=== PATIENT | male | born 1970 | race Caucasian/White ===

== ENCOUNTER 2017-04-07 09:08 | Inpatient (IN) | payer OTHER ==
[2017-04-07] VITALS (12 sets, daily range): BP systolic 107–130; BP diastolic 53–86; PULSE 68–100; RESP 10–18; O2SAT 96–98
[~2017-04-07] VITALS: Ht 180.3 cm; Wt 94.4 kg
--- NOTE | 2017-04-07 09:28 | ED.REPORT ---
HPI- Male Date of Service April 07, 2017 ED Provider: Sean Martin MD 46 y/o male with no pertinent hx presents to the ED complaining of a painful abscess in the inguinal region, onset 4 days ago. The pt was seen at the [place] [facility] 3 days ago and discharged with a prescription for Sulfa and instructions to do warm compresses. The pt reports he has been compliant with the antibiotics but the pain and swelling has gotten worse. The pt reports severe swelling and erythema of his right testicle. The pt also reports difficulty walking, change in appetite, chills, mild dysuria, and constipation. He denies fever, diarrhea and vomiting. Nursing Notes Stated Complaint: BOIL ON TESTICLES/HERNIA Chief Complaint: General Complaint Nursing Notes Reviewed: Yes Allergies: Coded Allergies: No Known Allergies (Unverified , 04/07/17) No Active Prescriptions or Reported Meds General Time Seen by MD: 09:27 Chief Complaint Other (Abscess on right testicle) Hx Obtained From: Patient Arrived By: Walk-in Onset Occurred: 4 days ago Symptom Duration: Since onset Location: : Testicle right Quality: Painful Radiation: : Does not radiate Severity: Current: Moderate Severity: Maximum: Moderate Recent Healthcare: Recent doctor visit Similar Sx Previous: No Past Medical History Past Medical History 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 Physical Exam Initial Vital Signs Vital Signs (First) Date Time Temp Pulse Resp B/P Pulse Ox O2 Delivery O2 Flow Rate FiO2 04/07/17 09:18 36.6 100 10 122/82 98 Room Air Initial VS: Reviewed Head / Eyes: Atraumatic, Normocephalic Neck: Supple, Full range of motion Respiratory: Breath sounds normal, No respiratory distress Cardiovascular: Regular rate & rhythm, Intact distal pulses Abdomen / GI: Soft, Non-tender, No guarding, No rebound Extremities: Vascular intact, Neuro intact, No swelling, No tenderness Neurologic: Alert, Oriented, Nonfocal Male Genitourinary: Penis NL, No penile discharge Testes / Epidid / Scrotum: Positive: Scrotum erythema, Testis enlarged R Perineum: Positive: Erythema present Marked erythema of the right inguinal region, scrotum and perineum. 2x2 cm mass at the base of the scrotum. Mass is tender and not fluctuant with an exception of the area from which it has been draining. Right side of the scrotum swollen and tender. Not fluctuant. General/Constitutional: Awake, Alert, Cooperative, Not toxic appearing Interpretation & Diagnostics Lab Results Interpretation Result Diagram: 04/07/17 0956 04/07/17 0956 Test 04/07/17 09:56 04/07/17 12:35 White Blood Count 10.7th/mm3 (3.8-10.1) Red Blood Count 4.90mil/mm3 (4.40-5.80) Hemoglobin 15.2g/dL (13.8-17.2) Hematocrit 43.3% (41.0-50.0) Mean Corpuscular Volume 88.4fL (81-100) Mean Corpuscular Hemoglobin 31.0pg (27.0-35.0) Mean Corpuscular Hemoglobin Concent 35.1% (32.0-37.0) Red Cell Distribution Width 14.1% (12.3-15.4) Platelet Count 170bil/L (150-400) Neutrophils (%) (Auto) 74.6% (40-74) Lymphocytes (%) (Auto) 17.4% (14-46) Monocytes (%) (Auto) 6.6% (4-12) Eosinophils (%) (Auto) 0.7% (0-5) Basophils (%) (Auto) 0.5% (0-3) Sodium Level 132mEq/L (134-144) Potassium Level 4.3mEq/L (3.5-5.2) Chloride Level 94mEq/L (97-108) Carbon Dioxide Level 22mmol/L (18-29) Blood Urea Nitrogen 12mg/dL (6-24) Creatinine 1.06mg/dL (0.76-1.27) Estimat Glomerular Filtration Rate 79mL/min (>59) Glucose Level 121mg/dL (60-99) Lactic Acid Level 0.8mmol/L (0.4-2.0) Calcium Level 9.0mg/dL (8.5-10.1) Total Bilirubin 0.7mg/dL (0.0-1.2) Aspartate Amino Transf (AST/SGOT) 17U/L (0-50) Alanine Aminotransferase (ALT/SGPT) 13U/L (0-44) Alkaline Phosphatase 104U/L (25-150) Total Protein 7.5g/dL (6.4-8.4) Albumin 3.8g/dL (3.4-5.0) Urine Color Yellow (YELLOW) Urine Appearance Clear (CLEAR,HAZY) Urine pH 6.5 (5.0-8.0) Urine Specific [place] 1.015 (1.003-1.035) Urine Protein Negativemg/dL (NEG,TRACE) Urine Glucose (UA) Negativemg/dL (NEGATIVE) Urine Ketones Negativemg/dL (NEGATIVE) Urine Occult Blood Negative (NEGATIVE) Urine Nitrite Negative (NEGATIVE) Urine Bilirubin Negative (NEGATIVE) Urine Urobilinogen Normalmg/dL (NORMAL) Urine Leukocyte Esterase Negative (NEGATIVE) Urine RBC 0-2/hpf (0-2) Urine WBC 0-5/hpf (0-5) Urine Epithelial Cells Occasional/hpf (NONE-MOD) Urine Crystals None seen (NONE SEEN) Urine Bacteria None/hpf (NONE-FEW) Urine Hyaline Casts None/lpf (NONE) Urine Granular Casts None seen (NONE SEEN) Urine Waxy Casts None seen (NONE SEEN) Urine Red Blood Cell Casts None seen (NONE SEEN) Urine White Blood Cell Casts None seen (NONE SEEN) Urine Mucus None seen (None Seen) Urine Trichomonas None seen (NONE SEEN) Urine Yeast None (NONE SEEN) Urinalysis Comment None Urine Culture Reflexed Not indicated CT Abd / Pelvis Interpretation IMPRESSION: 1. Perineal skin thickening and subcutaneous edema consistent with cellulitis with extension to the right hemiscrotum. No discrete abscess collection or soft tissue gas is identified, but developing Rodo's gangrene cannot be excluded and correlation is recommended with clinical exam. Findings discussed with Dr. Martin on 04/07/17 at 12:30 PM. 2. Slight wall thickening of the urinary bladder which could be due to nondistention or reflect a mild cystitis. Dictated by: Pascual Zacarias M.D. on 04/07/2017 at 12:17 Approved by: Pascual Zacarias M.D. on 04/07/2017 at 12:33 Study type: Abdominal CT IV contrast, Abdom CT oral contrast Interpretation / Wet Read by: Interpret - Radiologist Re-Eval/Medical Decision Re-Evaluation/Progress : Time of Eval: 13:09 Re-Evaluation/Progress Note: Rechecked pt. Discussed lab, imaging results and plan to admit. Pt understands and agrees with the plan for admission. All questions addressed. Consultation #1: Referral / Consult Name: Brianna Ruiz MD Consulted With: Hospitalist Call Returned at: 14:52 Dean Of Boys: Will see patient, Agrees with eval, Agrees with plan, Accepts admit Consultation #2: Referral / Consult Name: Dimitris Luong MD Consulted With: Surgeon Dean Of Boys: Will see patient Note: Dr. Ludwig came to the emergency department saw the patient at the bedside and made arrangements to take the patient to the operating room. Counseled Regarding: Diagnosis, Lab results, Need for admission Discharge & Departure Impression: Primary Impression: Cellulitis of perineum Additional Impression: Abscess Disposition: ADMITTED TO HOSPITAL Discharge Condition All VS Reviewed: Yes Scribe Attestation Portions of this note were transcribed by Shaheen Alcala. I, , personally performed the history, physical exam and medical decision-making;I reviewed and confirmed the accuracy of the information in the transcribed note. Signed by Janie Ramon. 04/07/17 1452 Sean Martin MD April 07, 2017 09:28 Shaheen Alcala April 07, 2017 09:35
[2017-04-07] MEDS ORDERED: 0.9% Sodium Chloride 1,000 ML IV ONE (09:39)
[2017-04-07] MEDS ORDERED: Iohexol 300 mg/mL 30 mL Inj PO ONE (09:40)
[2017-04-07] MEDS ORDERED: Clindamycin Inj 900 MG in IV Premix 1 EACH IV ONE ×2 (09:40→18:00)
[2017-04-07] MEDS ORDERED: Ondansetron 2 mg/mL 2 mL Inj IVPUSH PRN ×5 (09:40→16:40)
[2017-04-07] MEDS ORDERED: Vancomycin Dose per Pharmacist XX ONE (09:40)
[2017-04-07] MEDS ORDERED: Meropenem Inj 1,000 MG in 0.9% Sodium Chloride 100 ML IV ONE (09:40)
[2017-04-07] MEDS ORDERED: Acetaminophen IV 1,000 MG in IV Premix 1 EACH IV ONE (09:40)
[2017-04-07] MEDS ORDERED: HYDROmorphone 0.5 mg/0.5 mL iSecure Syringe IVPUSH PRN (09:40)
[2017-04-07] MEDS ORDERED: Vancomycin Inj 1,500 MG in 0.9% Sodium Chloride 500 ML IV ONE (10:00)
[2017-04-07 10:03] LABS: BASOPHILS % (AUTO) 0.5 % (0-3); EOSINOPHILS % (AUTO) 0.7 % (0-5); MONOCYTES % (AUTO) 6.6 % (4-12); Mean Corpuscular Volume 88.4 fL (81-100); NEUTROPHILS % (AUTO) 74.6 % (40-74); Platelet Count 170 bil/L (150-400)
[2017-04-07] MEDS: HYDROmorphone 1 mg/mL Inj IVPUSH PRN ×2 (10:15→11:20)
--- NOTE | 2017-04-07 12:34 | DRSVH ---
PROCEDURE: CT ABDOMEN AND PELVIS WITH CONTRAST (PNL-7102) INDICATIONS: perineal infection, soft tissue TECHNIQUE: After the administration of oral and intravenous contrast, 5 mm thick sections acquired from the diap hragms to the symphysis. 5 mm thick coronal and sagittal reformats were performed. For radiation do se reduction, the following was used: automated exposure control, adjustment of mA and/or kV accordi ng to patient size. COMPARISON: None. FINDINGS: Image quality: Excellent. ABDOMEN: Lung bases: There is minimal dependent atelectasis in that there are available. Heart size is normal . Solid organs: Liver and spleen are normal in size and enhancement. Gallbladder appears within brad l limits without calcified gallstones. Biliary system is non-dilated. Pancreas enhances normally. No adrenal nodules. Kidneys are normal in size and enhancement, without hydronephrosis. Peritoneum and bowel: Stomach, small bowel, and colon loops are normal in caliber and wall thickness . No evidence of appendicitis. No free fluid or air. Nodes and vessels: No retroperitoneal or mesenteric adenopathy. Aorta and inferior vena cava are no rmal in caliber. Miscellaneous: No ventral hernias. PELVIS: Genitourinary: The urinary bladder is partially distended with suggestion of mild bladder wall thicke erika Miscellaneous: There is skin thickening and subcutaneous edema demonstrated in the perineum extendin g to the right hemiscrotum. There is a focal ovoid region of inflamed fat without a discrete abscess collection. No soft tissue gas. There are mildly prominent inguinal lymph nodes bilaterally, right greater than left, measuring up to 1 cm in short axis with preserved fatty caitlyn. There is a small f at containing right inguinal hernia. Bones: No suspicious bony lesions. No vertebral body compression fractures. IMPRESSION: 1. Perineal skin thickening and subcutaneous edema consistent with cellulitis with extension to the right hemiscrotum. No discrete abscess collection or soft tissue gas is identified, but developing F ournier's gangrene cannot be excluded and correlation is recommended with clinical exam. Findings di scussed with Dr. Martin on 04/07/17 at 12:30 PM. 2. Slight wall thickening of the urinary bladder which could be due to nondistention or reflect a mi ld cystitis. Dictated by: Pascual Zacarias M.D. on 04/07/2017 at 12:17 Approved by: Pascual Zacarias M.D. on 04/07/2017 at 12:33
[2017-04-07 13:20] LABS: APPEARANCE,URINE CLEAR (CLEAR,HAZY); COLOR,URINE YELLOW (YELLOW); OCCULT BLOOD,URINE NEGATIVE (NEGATIVE); PH,URINE 6.5 (5.0-8.0); UROBILINOGEN,URINE NORMAL (NORMAL)
[2017-04-07] MEDS ORDERED: Ondansetron 2 mg/mL 2 mL Inj ONE (14:29)
[2017-04-07] MEDS ORDERED: Propofol 10,000 mCg/mL 20 mL Inj ONE (14:29)
[2017-04-07] MEDS ORDERED: Glycopyrrolate 0.2 MG/ML 1mL Inj ONE (14:29)
[2017-04-07] MEDS ORDERED: Succinylcholine Chloride 20 mg/mL 5 mL Inj ONE (14:29)
[2017-04-07] MEDS ORDERED: Neostigmine 1 mg/mL 10 mL Inj ONE (14:29)
[2017-04-07] MEDS ORDERED: fentaNYL-PF 50 mCg/mL 2 mL Inj ONE (14:29)
[2017-04-07] MEDS ORDERED: MetoCLOpramide 5 mg/mL 2 mL Inj ONE (14:29)
[2017-04-07] MEDS ORDERED: Rocuronium 10 mg/mL 5 mL Inj ONE (14:29)
[2017-04-07] MEDS ORDERED: Lactated Ringer's 1,000 ML IV ONE (15:24)
[2017-04-07] MEDS ORDERED: Atropine 0.4 mg/mL Inj IVPUSH PRN (15:45)
[2017-04-07] MEDS ORDERED: MetoCLOpramide 5 mg/mL 2 mL Inj IVPUSH PRN ×3 (15:45→16:40)
[2017-04-07] MEDS ORDERED: Lactated Ringer's 500 ML IV PRN (15:45)
[2017-04-07] MEDS ORDERED: EPHEDrine Sulfate 50 mg/mL Inj IVPUSH PRN (15:45)
[2017-04-07] MEDS ORDERED: Labetalol 5 mg/mL 4 mL Inj IV PRN (15:45)
[2017-04-07] MEDS ORDERED: fentaNYL-PF 50 mCg/mL 2 mL Inj IVPUSH PRN (15:45)
[2017-04-07] MEDS ORDERED: Lactated Ringer's 1,000 ML IV SCH (15:45)
[2017-04-07] MEDS ORDERED: Phenylephrine 10,000 mCg/mL Inj IVPUSH PRN (15:45)
[2017-04-07] MEDS ORDERED: HYDROmorphone 1 mg/mL Inj IVPUSH PRN (15:45)
--- NOTE | 2017-04-07 15:45 | PCM.HPANE ---
Patient Data Surgeon Admitting Provider:Brianna Ruiz MD Attending Provider:Brianna Ruiz MD Primary Care Physician:Mary Other Provider:Shasha Real Anesthesia Reason for Visit Perineal Cellulitis Abscess Ht/WT & BMI Height (Feet): 5 Height (Inches): 11 Weight (Kilograms): 84.09 Body Mass Index Allergies Coded Allergies: No Known Allergies (Unverified , 04/07/17) Past Anesthesia History Anesthesia History: Denies:: Abnormal Airway, Anesthesia Reactions, Difficult Intubation, Fam Anesthesia Reaction, Fam Malignant Hypertherm, Malignant Hyperthermia Diabetes History Hx Diabetes?: No MRSA MRSA: No Medications No Active Prescriptions or Reported Meds History History of ENT Problems?: No HEENT History: Denies:: Abnormal Airway Cataracts Difficult Intubation Dysphagia Glaucoma Hearing Problem Sinus Problem TMJ Denture Type: None Teeth Condition: Within Normal Limits Hx of Heart Problems?: No Cardiovascular History: Denies:: AICD Abdominal Aortic Aneurism Atrial Fibrillation Cardiac Surgery Chest Pain Congestive Heart Failure Coronary Artery Disease Edema Heart Murmur Hypertension Irregular Heartbeat Pacemaker Peripheral Vascular Rheumatic Fever Thrombophlebitis Valvular Heart Disease Hx of Respiratory Problem?: No Respiratory History: Denies:: Asthma COPD Chest Surgery Cough Dyspnea Emphysema Hemoptysis Oxygen Administration Pneumonia Pulmonary Embolism Tuberculosis Use of C-PAP Machine Use of Inhalers / NEBS Hx Neurologic Problems?: No Neurological History: Denies:: Alzheimer's Disease CVA Dementia Dizziness Headaches Multiple Sclerosis Parkinson's Disease Peripheral Neuropathy Seizures TIA Hx of GI Problems?: Yes Gastrointestinal History: Denies:: Cirrhosis Diverticulitis Gall Bladder Disease Gastroesphageal Reflux Gastrointestinal Bleeding Heartburn Hepatitis Hiatal Hernia Liver Disease Rectal Bleeding Other GI Pertinent History: hx of inguinal hernia, s/p repair Hx of Problems?: No Genitourinary History: Denies:: HX of Hemodialysis Kidney Stones Urinary Tract Infection HX of Peritoneal Dialysis: No Male Hx: Positive for:: Scrotal Mass (current; perineal abscess and cellulitis ) Denies:: Prostate Problems Testicular Surgery Skin History: Denies:: History Skin Disorders? Pressure Ulcers Other Skin Pertinent History: current: erythema and tenderness of the rt.inguinal region, scrotum and perineum; rt.inguinal abscess Hx Musculoskeletal Problems?: No Musculoskeletal History: Denies:: Back Injury Degenerative Joint Fibromyalgia Joint Replacement Musculoskeletal Trauma Myasthenia Gravis Osteoarthritis Rheumatoid Arthritis Systemic Lupus Hx of Psycho/Social Problems?: No Psycho Social History: Denies:: Anxiety Bipolar Disorder Hx Depression Suicide Attempt Hx Surgeries?: Yes (bilateral ankles) Hx Any Other Health Problems?: Yes Other History: Denies:: Cancer Hospitalization Thyroid Disease History Blood Transfusions: Positive for:: Accept Blood Products? Denies:: Blood Transfusions Hx Diabetes: No Hx Alcohol Use: Yes (Quit 2016)Hx Substance Use: No Smoking Status: Current Every Day Smoker Stop/Bang Treated for Sleep Apnea?: No Do You Have a CPAP Machine?: No S-Snoring: Do You Snore Loudly: No T-Tired: feel tired, fatigued: No O-Obsered: Observed not breath: No P-Blood Pressure: treated: No B- Body Mass Index > 35 kg/m2: No A- Age over 50: No N- Neck Large Circumference: No G- Gender Male: Yes HERMELINDO Total Score: 1 Risk Assessment Category Category 1A: Patient has history of documented sleep apnea, and HAS NOT received any narcotic, sedative or anesthesia administration during this stay. Category 1B: Patient has history of documented sleep apnea, and HAS received any narcotic , sedative or anesthesia administration during this stay Category 2: Patient has SUSPECTED Obstructive Sleep Apnea, and HAS received any narcotic , sedative or anesthesia administration during this stay. Category 3: Patient has SUSPECTED Obstructive Sleep Apnea and HAS NOT received narcotic, sedative or anesthesia administration during this stay. Category 4: Outpatient in Procedural Areas with known sleep apnea or who screen positive for High Risk via the STOP/BANG questionnaire. Exam Exam Vital Signs Vital Signs Date Time Temp Pulse Resp B/P Pulse Ox O2 Delivery O2 Flow Rate FiO2 04/07/17 15:03 36.8 98 12 120/78 98 Room Air 04/07/17 13:50 36.8 98 12 120/78 98 Room Air 04/07/17 09:18 36.6 100 10 122/82 98 Room Air General Appearance: Alert, Oriented X3, Cooperative, Moderate Distress (groin abscess pain) HEENT/AIRWAY: MP 2, Neck Movement (FROM), Mouth Opening (3 FBMO) Lungs: Normal Air Movement Heart: Regular Rate/Rhythm Meds/Labs/Diagnostics Admission Meds Current Medications Sodium Chloride 1,000 ml @ 0 mls/hr Q0M ONCE IV Last administered on t 10:16; Start 04/07/17 at 09:39; Stop 04/07/17 at 09:46; Status DC Clindamycin Phosphate/ Dextrose 900 mg/ Premix 50 ml @ 100 mls/hr ONCE ONCE IV Last administered on 04/07/17 10:16; Start 04/07/17 at 09:40; Stop at 10:09; Status DC Meropenem 1000 mg/ Sodium Chloride 100 ml @ 200 mls/hr ONCE ONCE IV Last administered on 04/07/17 11:19; Start 04/07/17 at 09:40; Stop 04/07/17 at 10:09 ; Status DC Acetaminophen/ Premix (Tylenol IV/IV Premix) 100 ml @ 400 mls/hr ONCE ONCE IV Last administered on 04/07/17 10:50; Start 04/07/17 at 09:40; Stop 04/07/17 at 09:54; Status DC Ketorolac Tromethamine (Toradol Inj) 30 mg ONCE ONCE IVPUSH Last administered on 04/07/17 10:16; Start 04/07/17 at 09:40; Stop 04/07/17 at 09:46; Status DC Iohexol 9000 mg 9,000 mg ONCE ONCE PO Last administered on 04/07/17 10:22; Start 04/07/17 at 09:40; Stop 04/07/17 at 09:46; Status DC Vancomycin HCl/ Sodium Chloride (Vancocin Inj/ Normal Saline) 500 ml @ 333.333 mls/hr OT ONCE IV Last administered on 04/07/17 12:35; Start 04/07/17 at 10: 00; Stop 04/07/17 at 11:29; Status DC Labs Test 04/07/17 09:56 04/07/17 12:35 White Blood Count 10.7th/mm3 (3.8-10.1) Red Blood Count 4.90mil/mm3 (4.40-5.80) Hemoglobin 15.2g/dL (13.8-17.2) Hematocrit 43.3% (41.0-50.0) Mean Corpuscular Volume 88.4fL (81-100) Mean Corpuscular Hemoglobin 31.0pg (27.0-35.0) Mean Corpuscular Hemoglobin Concent 35.1% (32.0-37.0) Red Cell Distribution Width 14.1% (12.3-15.4) Platelet Count 170bil/L (150-400) Neutrophils (%) (Auto) 74.6% (40-74) Lymphocytes (%) (Auto) 17.4% (14-46) Monocytes (%) (Auto) 6.6% (4-12) Eosinophils (%) (Auto) 0.7% (0-5) Basophils (%) (Auto) 0.5% (0-3) Sodium Level 132mEq/L (134-144) Potassium Level 4.3mEq/L (3.5-5.2) Chloride Level 94mEq/L (97-108) Carbon Dioxide Level 22mmol/L (18-29) Blood Urea Nitrogen 12mg/dL (6-24) Creatinine 1.06mg/dL (0.76-1.27) Estimat Glomerular Filtration Rate 79mL/min (>59) Glucose Level 121mg/dL (60-99) Lactic Acid Level 0.8mmol/L (0.4-2.0) Calcium Level 9.0mg/dL (8.5-10.1) Total Bilirubin 0.7mg/dL (0.0-1.2) Aspartate Amino Transf (AST/SGOT) 17U/L (0-50) Alanine Aminotransferase (ALT/SGPT) 13U/L (0-44) Alkaline Phosphatase 104U/L (25-150) Total Protein 7.5g/dL (6.4-8.4) Albumin 3.8g/dL (3.4-5.0) Urine Color Yellow (YELLOW) Urine Appearance Clear (CLEAR,HAZY) Urine pH 6.5 (5.0-8.0) Urine Specific [place] 1.015 (1.003-1.035) Urine Protein Negativemg/dL (NEG,TRACE) Urine Glucose (UA) Negativemg/dL (NEGATIVE) Urine Ketones Negativemg/dL (NEGATIVE) Urine Occult Blood Negative (NEGATIVE) Urine Nitrite Negative (NEGATIVE) Urine Bilirubin Negative (NEGATIVE) Urine Urobilinogen Normalmg/dL (NORMAL) Urine Leukocyte Esterase Negative (NEGATIVE) Urine RBC 0-2/hpf (0-2) Urine WBC 0-5/hpf (0-5) Urine Epithelial Cells Occasional/hpf (NONE-MOD) Urine Crystals None seen (NONE SEEN) Urine Bacteria None/hpf (NONE-FEW) Urine Hyaline Casts None/lpf (NONE) Urine Granular Casts None seen (NONE SEEN) Urine Waxy Casts None seen (NONE SEEN) Urine Red Blood Cell Casts None seen (NONE SEEN) Urine White Blood Cell Casts None seen (NONE SEEN) Urine Mucus None seen (None Seen) Urine Trichomonas None seen (NONE SEEN) Urine Yeast None (NONE SEEN) Urinalysis Comment None Urine Culture Reflexed Not indicated Plan Impression Patient chart reviewed, patient interviewed and anesthestic plan with risks, benefits, and alternatives discussed, and informed consent obtained. NPO per Anesth. Guidelines: Yes ASA Physical Status: ASA2 Plus Emergency Anesthetic Plan: GA Bene/Risks/Altern/Consents: Yes HP Complete Prior to Induction: Yes Spencer Wu MD April 07, 2017 15:14
[2017-04-07] MEDS ORDERED: Bupivacaine-MPF 0.5% 30 mL Inj INJ ONE (16:00)
[2017-04-07] MEDS ORDERED: Clindamycin Inj 900 MG in IV Premix 1 EACH IV SCH ×2 (16:30→18:00)
[2017-04-07] MEDS: Vancomycin Dose per Pharmacist XX SCH (16:35)
--- NOTE | 2017-04-07 17:05 | PCM.ANEP1 ---
Post Anesthesia PACU Phase 1 Assessment Vital Signs Vital Signs Date Time Temp Pulse Resp B/P Pulse Ox O2 Delivery O2 Flow Rate FiO2 04/07/17 16:55 36.5 75 15 116/68 96 Room Air 04/07/17 16:50 72 16 114/68 96 Room Air 04/07/17 16:45 72 16 122/53 96 Room Air 04/07/17 16:40 72 16 109/69 96 Room Air 04/07/17 16:35 72 16 107/64 96 Room Air 04/07/17 16:30 70 15 108/70 96 Room Air 04/07/17 16:25 36.2 70 15 123/83 96 Simple Mask 8 04/07/17 15:03 36.8 98 12 120/78 98 Room Air 04/07/17 13:50 36.8 98 12 120/78 98 Room Air 04/07/17 09:18 36.6 100 10 122/82 98 Room Air Anesthetic Administered: GA Level of Alertness: Awake, talking COOK's with Equal Strength: Yes Pain: No Pain Scale Score: 7 Nausea or Vomiting: No CV Function and Hydration: No Airway Device: Oxygen Delivery: Room Air Lungs: Normal Air Movement Dermatome Level: Full Sensation PACU Phase 2 Assessment Complications: No Follow up Care: No Patient Instructions Provided: N/A Spencer Wu MD April 07, 2017 17:05
[2017-04-07] MEDS: 0.9% Sodium Chloride 1,000 ML IV SCH (17:31)
[2017-04-07] MEDS ORDERED: Polyethylene Glycol (PEG) 17 Gm Powder PO PRN (17:35)
--- NOTE | 2017-04-07 17:40 | PCM.HPMED ---
Subjective Date of Service April 07, 2017 Primary Provider: Admitting Physician: Primary Care Physician: Mary Attending Physician: Admit Status: From the Emergency Department Chief Complaint: R testicular pain History of Present Illness: 46 yo male with a significant hx of tobacco abuse presenting to ER with 4 days of inguinal pain that began over the weekend, worsening by monday with e/o abscess that looked like a "pimple" and evaluated at [place] [facility] 3 d ago - with instructions for conservative tx, pain meds and antibiotics with progressive worsening over the last few days with pain to R testicle. pain was noted with walking, denies cp/sob/f/D/V - but +chills, and pain with urination. Review of Systems: complete ROS unremarkable unless stated in HPI Allergies Coded Allergies: No Known Allergies (Unverified , 04/07/17) Home Medications no current meds PMH alcoholism congenital Surgical History R ankle surgery/hardware removal Family History noncontributory Social History Hx Alcohol Use: Yes (Quit 2015) Hx Substance Use: No Smoking Status: Current Every Day Smoker Exam Vital Signs Vital Sign - Last Date Time Temp Pulse Resp B/P Pulse Ox O2 Delivery O2 Flow Rate FiO2 04/07/17 13:50 36.8 98 12 120/78 98 Room Air Exam Gen: nad, a/ox3 HEENT: NCAT, PERRLA, MM Neck: no LAD or JVD Cardio: RR, no r/c/m/g nl s1/s2 Resp: distant BS throughout, no wheezes/rales GI: mild distension, nt, nd, no masses, +BS : R pernieal region with bandage, and wound evaluation shows no active bleeding, packing intact Extrem: no c/c/e, pulses intact Neuro: CN 2-12 GI, no focal deficit Psych: nl mood/affect Lab and Diagnostics Result Diagram: 04/07/17 0956 04/07/17 0956 X-Rays, CTs and MRIs PROCEDURE: CT ABDOMEN AND PELVIS WITH CONTRAST (PNL-7102) INDICATIONS: perineal infection, soft tissue TECHNIQUE: After the administration of oral and intravenous contrast, 5 mm thick sections acquired from the diaphragms to the symphysis. 5 mm thick coronal and sagittal reformats were performed. For radiation dose reduction, the following was used : automated exposure control, adjustment of mA and/or kV according to patient size. COMPARISON: None. FINDINGS: Image quality: Excellent. ABDOMEN: Lung bases: There is minimal dependent atelectasis in that there are available. Heart size is normal. Solid organs: Liver and spleen are normal in size and enhancement. Gallbladder appears within normal limits without calcified gallstones. Biliary system is non-dilated. Pancreas enhances normally. No adrenal nodules. Kidneys are normal in size and enhancement, without hydronephrosis. Peritoneum and bowel: Stomach, small bowel, and colon loops are normal in caliber and wall thickness. No evidence of appendicitis. No free fluid or air. Nodes and vessels: No retroperitoneal or mesenteric adenopathy. Aorta and inferior vena cava are normal in caliber. Miscellaneous: No ventral hernias. PELVIS: Genitourinary: The urinary bladder is partially distended with suggestion of mild bladder wall thickening Miscellaneous: There is skin thickening and subcutaneous edema demonstrated in the perineum extending to the right hemiscrotum. There is a focal ovoid region of inflamed fat without a discrete abscess collection. No soft tissue gas. There are mildly prominent inguinal lymph nodes bilaterally, right greater than left, measuring up to 1 cm in short axis with preserved fatty caitlyn. There is a small fat containing right inguinal hernia. Bones: No suspicious bony lesions. No vertebral body compression fractures. IMPRESSION: 1. Perineal skin thickening and subcutaneous edema consistent with cellulitis with extension to the right hemiscrotum. No discrete abscess collection or soft tissue gas is identified, but developing Rodo's gangrene cannot be excluded and correlation is recommended with clinical exam. Findings discussed with Dr. Martin on 04/07/17 at 12:30 PM. 2. Slight wall thickening of the urinary bladder which could be due to nondistention or reflect a mild cystitis. Dictated by: Pascual Zacarias M.D. on 04/07/2017 at 12:17 Approved by: Pascual Zacarias M.D. on 04/07/2017 at 12:33 Assessment & Plan 46 yo male presenting with R testicular pain found to have R hemiscrotum cellulitis/abscesss now taken to surgery Perineal abscess/R scrotum cellulitis - possible [facility] -to OR for debridement -Appreciate ID recommendations - received vanc/meropenem/clinda in ER/OR -pain control: morphine IV PRN,and norco 1-2 q 4PRN -please monitor oxygen saturations if pt needing narcotic regimen - bowel regimen -zofran/reglan PRN -wound care -I/Os, daily weights Tobacco Abuse -nicotine patch Alcoholism: -stable - last drink 1 yr ago Pain Evaluation: Adequate Pain Control GI Prophylaxis: Not indicated VTE Prophylaxis: Other (start dvt proph with enoxaprin tomorrow) Resuscitation Status: CPR: Attempt Resuscitation Time spent 45 minutes spent with eval and mgmt including admission Brianna Ruiz MD April 07, 2017 15:00 Rajiv Padilla DO April 07, 2017 16:31
[2017-04-07] MEDS ORDERED: PIPERACILLIN TAZO IV ONE (17:55)
[2017-04-07] MEDS ORDERED: Piperacillin-Tazo 3.375 Gm Inj 3.375 GM in Dextrose 5% Minibag Plus 50 ML IV ONE (17:55)
[2017-04-07] MEDS ORDERED: DEXTROSE 5% IV ONE (17:55)
[2017-04-07] MEDS ORDERED: Meropenem Inj 1,000 MG in IV Premix 1 EACH IV SCH (19:00)
--- NOTE | 2017-04-07 19:14 | NUR ---
Post Op Pt arrived from PACU to OSC unit, 1012, via gurney, at 1700. A&Ox3, COOK - ambulated from gurney to bed, VSS, IV patent and infusing, Dressing with packing to right side scrotum, minimal drainage noted - visualized with MD present, States minor to no pain, Pt oriented to room and hospital policy re: not leaving the unit - pt stated understanding. Pt making jokes and cooperative with care. Care continues.
--- NOTE | 2017-04-07 19:43 | PCM.PHAPRO ---
Progress Date of Service: April 07, 2017 R testicular pain Vancomycin Management Per Pharmacy: Indication: Perineal Cellulitis Goal Trough: ~15 mg/dL, taking into consideration location Age: 46 yo Weight: 84 kg Labs: WBC: 10.7 SrCr: 1.06 mg/dL Procalcitonin: 0.13 CRP: 27.7 Est CrCl: ~85 mL/min Vitals: All stable Microbiology: Pending Nephrotoxic Risks: Zosyn IV Recommendation: Load: Vancomycin 1500 mg IV x 1 given Maintenance: Vancomycin 1250 mg IV Q12h Vanco Trough: Draw on 04/09 @ 0730 prior to 4th maintenance dose. Pharmacy to continue to monitor and adjust as needed. Thank You, Celia Love, Pharm D. Celia Love April 07, 2017 19:43
--- NOTE | 2017-04-07 20:22 | CONS ---
[address] [address] CONSULTATION REPORT PATIENT: SHADE CALLOWAY : 1970 MR#: [id number] ADMIT: 04/07/2017 JOB ID: [id number] DATE OF SERVICE: 04/07/2017 CONSULTATION REQUESTED BY: Dr. Sean Martin and the Hospitalist Team. HISTORY OF PRESENT ILLNESS: A 46-year-old man who earlier this week noticed a "pimple" located between the anterior rectum and the base of his scrotum. He tried to drain it; did not really get any drainage. He went to the [facility] Emergency Department and was started on antibiotics. He was told to have it seen if it progressed. He has developed increasing erythema and the swelling in the perineum but extending up to the right hemiscrotum and then also into his right groin. He came to [facility] Emergency Department today and was seen by Dr. Sean Martin. He did not identify an obvious abscess but ordered a CT scan of the abdomen and pelvis. This showed perineal skin thickening and subcutaneous edema consistent with cellulitis. There is no obvious abscess. There is no soft tissue gas. The patient has never had this before. He is an everyday smoker. He quit alcohol a year ago. He has not eaten anything today. PAST MEDICAL HISTORY: Illnesses: Reports a history of alcohol abuse and he voluntarily quit a year ago. He smokes cigarettes daily with a plan to quit now which is a year from quitting alcohol. SOCIAL HISTORY: He works building [employer]. He is a former Special adult education teacher. He lives in [place]. FAMILY HISTORY: Noncontributory. PHYSICAL EXAMINATION: Alert, appearing older than stated age. No acute distress (from smoking). BMI 26. Temperature 36.6, brachial blood pressure 122/82, pulse 100, respiratory rate 10, O2 sat room air 98%. HEENT: PERRLA, EOMI. Neck: No masses. Trachea midline. No thyromegaly. Lungs: Clear. Cardiac exam: Regular rhythm. I did not appreciate any murmurs. Abdomen is soft, nontender. Groin: He has marked erythema without crepitus or obvious fluctuation in his right groin. He states he has had a hernia over the last year. Genitalia: His right testicle is contracted. There is erythema over the right hemiscrotum. No crepitus. Perineum: Erythema with a small opening that is draining a small amount of pus. Extremities: No lower extremity edema. Skin: Erythema as described above but no rashes. Neurologic exam: Appropriate affect. No obvious cranial nerve deficits. No lateralizing signs. Gait normal. IMAGING: CT scan is personally reviewed with Dr. Pablo Alvarez. LABORATORY RESULTS: White blood cell count 10.7 with a left shift, hematocrit is 43, platelet count 170,000. Sodium 132, potassium 4.3, creatinine 1.06. Glucose 121. Lactic acid 0.08. Urinalysis is normal. IMPRESSION: Perineal cellulitis. It is progressive. I advised him that we need to explore this in the operating room. 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 He is aware that he may have an incision extending from his perineum up into his right groin. I have scheduled it with the operating room to go as soon as we can find operative space. The patient agrees to proceed. The patient seen for decision to operate. TIME SPENT: Time spent with patient, Dr. Martin, Dr. Alvarez, and in coordination of care, 1 hour.
[2017-04-07] MEDS: HYDROcodone-APAP 5-325 mg Tablet PO PRN (20:46)
[2017-04-07] MEDS: Senna-Docusate 8.6-50 mg Tablet PO SCH (21:00)
[2017-04-07] MEDS: Vancomycin Inj 1,250 MG in 0.9% Sodium Chloride 250 ML IV SCH (22:49)
[2017-04-08 00:30] VITALS: BP 109/72; PULSE 88; RESP 16; O2SAT 94
[2017-04-08] MEDS: 0.9% Sodium Chloride 1,000 ML IV SCH ×3 (00:51→22:53)
[2017-04-08] MEDS: DEXTROSE 5% IV SCH ×3 (01:28→17:48)
[2017-04-08] MEDS: PIPERACILLIN TAZO IV SCH ×3 (01:28→17:48)
--- NOTE | 2017-04-08 04:45 | NUR ---
Dressing/Pain Pt reported pain at 7/10 x1 time and rec'd prn vicodin with + effects. Pt kerlex changed due to it falling out and was saturated with sero sanguineous fluid. Packing intact, skin edges ok. ABD pad with minor sero sanguineous fluid. Pt compliant with using net underwear to keep in place. Using urinal at bedside. Care continues
[2017-04-08] MEDS: HYDROcodone-APAP 5-325 mg Tablet PO PRN ×4 (05:29→21:10)
[2017-04-08 06:11] VITALS: BP 103/65; PULSE 86; RESP 16; O2SAT 94
--- NOTE | 2017-04-08 06:50 | CONS ---
[address] [address] CONSULTATION REPORT PATIENT: SHADE CALLOWAY : 1970 MR#: [id number] ADMIT: 04/07/2017 JOB ID: [id number] INFECTIOUS DISEASE CONSULT: DATE OF SERVICE: 04/07/[address] Dimitris Luong for this timely consult. REASON FOR CONSULTATION: Forme fruste of Rodo's syndrome. HISTORY OF PRESENT ILLNESS: The patient is a relatively healthy 46-year-old gentleman who was admitted to this facility today and then proceeded more or less directly to the operating room for evaluation of a possible early Rodo's gangrene. He just returned from the OR. Patient's history begins about five days ago when he noted a pimple just posterior to his scrotum. This area gradually enlarged and became more painful, so he sought evaluation by a physician and was prescribed oral sulfa drugs plus Vicodin for pain. Despite taking numerous doses of the sulfa drug over the past 72 hours, this area has progressively enlarged and became more swollen and tender. Over the past 24 hours, in addition to the local pain and swelling behind the scrotum, the patient developed some fever, some fairly impressive chills, generalized malaise, myalgias and arthralgias. He also noted that this erythema was starting to spread up to the site of a prior right inguinal hernia and he became quite concerned and reported to our emergency department. There, there was appropriate concern about possible early Rodo's gangrene and the patient was cultured, started on broad-spectrum antibiotics including vancomycin, clindamycin, and meropenem and a CT scan was done. CT scan shows perineal skin thickening with subcutaneous edema in the perineum extending to the right hemiscrotum along with some swollen lymph nodes and old right inguinal hernia. No gas was seen and there was no clear-cut evidence of Rodo's. Note, that I was present in the radiology suite when the radiologist and Dr. Luong reviewed these films and I had a chance to view them even before I happened to be consulted on this case. PAST MEDICAL HISTORY: 1. Alcohol abuse, having quit one year ago. 2. Ongoing history of tobacco smoking. 3. History of aortic stenosis which led to his being from the [place] after boot camp, but which strangely enough, has not been a problem since. 4. Right ankle ORIF with hardware removed because of pain. SOCIAL HISTORY: The patient quit heavy drinking one year ago. The patient is , has three children. 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 FAMILY HISTORY: Negative for TB in 1st and second-degree relatives. REVIEW OF SYSTEMS: Patient currently without any headache, visual change or sore throat. He has had no trouble swallowing. No significant cough, shortness of breath or chest pain. He notes he has a smoking type respiratory chronic complaints which are mild. He has no significant myalgias or arthralgias, but he has had some shaking chills and some fever as well. No nausea, vomiting or diarrhea. No dysuria though he has had some edema and therefore some trouble urinating on that basis. He has had some constipation which is likely related to pain meds he was given the other day. No cellulitis except that behind his scrotum and extending up into his right inguinal area and certainly no cellulitis streaking up or down the abdominal wall of the legs. Remainder of the review of systems negative. PHYSICAL EXAMINATION: Reveals an afebrile gentleman, in no acute distress. Temp 36.4, pulse 68, respiratory rate 18, blood pressure 130/82, saturating well on room air. He is in no acute distress at all. He is awake, alert and completely lucid. Head without trauma. Eyes without conjunctivitis. Neck is supple without adenopathy. Oral oropharynx is benign, except some prominent papillae on his posterior tongue. Lungs with decreased breath sounds diffusely, but no focal rales, rhonchi or dullness. Cardiac tones regular rate and rhythm without any murmur. Abdomen is soft and nontender. There are no abnormalities of the abdomen. The patient is wearing a fishnet sort of brief which holds the dressing in place in his posterior scrotum, but that is over his incision, it was just made during his recent exploration; otherwise, no notable abnormalities are seen in the genitalia or the groin. There is no erythema, streaking up or down the legs or onto the abdominal wall. Lower extremities are benign with good pulses. No cellulitis, no edema, no synovitis was noted. LABORATORY DATA: Labs include a white count 10,700. Creatinine 1.06 and is normal. Urinalysis completely negative. Micro studies include two sets of blood cultures which are pending. The abdominal CT has already been reviewed. There is still no postop note that we understand by word of mouth from the OR nurses that there were no significant findings of Rodo's. 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 These soft tissue infections in the groin are usually due to a combination of anaerobes and aerobes, but that is more in the flagrantly diabetic patient which this patient is not. I suspect this may in fact be a Staph aureus infection as they are becoming increasingly common infections in the groin area and the history perhaps sounds more like MRSA that was inadequately treated with lower doses of Bactrim then a classic anaerobic/anaerobe Rodo synergistic gangrene, but at this point, it is difficult to tell. In any event, the patient is not very toxic, does not have any significant fever, does not have hypotension and does not even have a leukocytosis. RECOMMENDATIONS: 1. We are going to check a CRP and a procalcitonin. 2. MRSA screen of the nose has been ordered. 3. Will change the antibiotics a bit from vancomycin, clindamycin and meropenem to a combination of vancomycin and high-dose Zosyn. 4. Clindamycin is not needed here as there is no evidence for necrotizing process at this point. 5. I would treat the patient with IV antibiotics for least a couple of days even though he wishes to leave soon. If this is indeed a forme fruste with some Rodo's type process, it will be important to gain control of this infection before it can cause any additional tissue destruction. 6. If the patient is stable to leave over the weekend, he could probably be discharged on high-dose Augmentin depending on what his culture show with Zyvox to be added if MRSA is found. Thank you very much for this timely consult.
--- NOTE | 2017-04-08 07:20 | PCM.PNSURG ---
Subjective Visit Information: Reason for Visit Perineal Cellulitis Abscess Surgery/Surgery Date Post-Op Day # Date of Admission: April 07, 2017 at 15:11 Hospital Day # Subjective: feels fine, has a girlfriend who can do dressing changes for him, wants to know if he can leave today Objective Objective Awake in his own clothes, standing up Abd: soft Perineum -- about 2 inch incision at R scrotum with packing Vital Sign- Last 8 Hours Date Time Temp Pulse Resp B/P Pulse Ox O2 Delivery O2 Flow Rate FiO2 04/08/17 06:11 36.7 86 16 103/65 94 Room Air 04/08/17 00:30 36.8 88 16 109/72 94 Room Air Intake and Output- Last 8 Hour 04/08/17 Cumulative From/Thru 07:00 04/07/17 09:18 - 04/08/17 06:41 Intake Total 1651 ml 3751 ml Output Total 2400 ml 2750 ml Balance -749 ml 1001 ml Intake Oral 800 ml 800 ml IV Total 851 ml 2951 ml Output Urine Total 2400 ml 2750 ml # Bowel Movements 0 Result Diagram: 04/07/17 0956 04/07/17 0956 Assessment & Plan Impression POD #1 s/p I & D of R scrotal/perineal abscess Clinically doing well Problems: Plan Abx per ID and hospitalist Daily dressing changes VTE Prophylaxis: Other (start dvt proph with enoxaprin tomorrow) Resuscitation Status: CPR: Attempt Resuscitation Jordan Tadeo MD April 08, 2017 07:20
[2017-04-08 08:09] VITALS: BP 99/65; PULSE 61; RESP 18; O2SAT 98
--- NOTE | 2017-04-08 08:21 | OP ---
[address] [address] OPERATIVE REPORT PATIENT: SHADE CALLOWAY : 1970 MR#: [id number] ADMIT: 04/07/2017 JOB ID: [id number] DATE OF SURGERY: 04/07/2017 PREOPERATIVE DIAGNOSIS(ES): 1. Perineal abscess. 2. Right inguinal cellulitis. POSTOPERATIVE DIAGNOSIS(ES): 1. Perineal abscess. 2. Right inguinal cellulitis. PROCEDURE: Incision and drainage of perineal abscess, complex. SURGEON: Dimitris Luong MD. AUTOMATIC CIGAR WRAPPER TENDER: Asad Bridges PA-C INDICATIONS: A 46-year-old man who 4-5 days ago developed a "pimple" on his perineum. Three days ago, he went to [facility], was given antibiotics. He was told to return for evaluation if his abscess worsened. He developed redness that went up onto his right hemiscrotum and inguinal region and came to the emergency department today. He had a CT scan that showed no evidence of an abscess, but did show cellulitis. There was also no gas in the soft tissues. On examination, he had an abscess with some pus draining from it and his perineum near the base of the scrotum and after discussing options with the patient, it was elected to proceed to the operating room for exploration and incision and drainage. FINDINGS: The abscess actually was not very large, but there was tracking that extended up towards the right groin. The entire length of this was opened and measured about 8 cm. Pus that I drained was cultured. DESCRIPTION OF PROCEDURE: At the beginning and end of the operation, the SCOAP checklist was completed. A general endotracheal anesthetic was induced. Using Betadine on his peritoneum and ChloraPrep on his abdomen, he was prepped and draped in the usual fashion. The abscess was probed, pus was evacuated and then cultured. The tract extended superiorly and to the right alongside the scrotum. I injected local anesthesia and then the skin and subcutaneous tissue over this was opened. I was able to then find another tract that extended even more anteriorly and opened that up as well. There was only a small amount of necrotic tissue. There was no evidence of a necrotizing infection. After hemostasis was obtained with cautery, the wound was packed with saline moistened Kerlix, covered with dry Kerlix and an ABD and then mesh panties. The estimated blood loss was 10 cc. There were no apparent complications. The only specimen was the culture. The final sponge, needle and instrument counts were announced as correct and the patient was returned to recovery room in stable condition. Critical assistance was provided by Asad Bridges PA-C.
[2017-04-08] MEDS: Vancomycin Inj 1,250 MG in 0.9% Sodium Chloride 250 ML IV SCH ×2 (08:27→22:53)
[2017-04-08] MEDS: Vancomycin Dose per Pharmacist XX SCH (08:30)
--- NOTE | 2017-04-08 15:24 | NUR ---
Social Work Note: Screen Note Data& Assessment: EMR reviewed. SW met with pt at bedside to check in and assess for any unmet needs, SW role explained. Abelriki Woodall is a 46 year old male admitted on 04/07/2017 for perineal cellulitis abscess. Pt has [employer] insurance coverage and does not have a PCP. SW offered to make a PCP appointment for pt or offer information on PCP's in the area, but pt declined. Pt explained "Im not a go to the doctor kind of luis." Pt also declined Advance Directive/ DPOA paperwork as well. Pt lives in [place] with his best friend/Roommate and is independent at baseline. Pt car is in the parking lot and plans to drive himself home if the MD approves it. Pt denies any other needs. No other discharge needs identified at this time. SW to continue to follow if any needs arise. Plan: Anticipated discharge home via POV when medically ready. Pt denies any other needs. No other discharge needs identified at this time. SW to continue to follow if any needs arise. MICHAEL Dominguez
--- NOTE | 2017-04-08 15:27 | PCM.PNMED ---
Subjective Date of Service April 08, 2017 Subjective He is seen today to follow up his right groin cellulitis and nicotine addiction. He is refusing a nicotine patch and asking the nurses to be allowed to smoke outside. Exam Vital Signs Vital Sign - Last Date Time Temp Pulse Resp B/P Pulse Ox O2 Delivery O2 Flow Rate FiO2 04/08/17 08:09 37.5 61 18 99/65 98 Room Air 04/07/17 16:25 8 Intake and Output 04/07/17 04/07/17 04/08/17 Cumulative From/Thru 15:00 23:00 07:00 04/07/17 09:18 - 04/08/17 06:41 Intake Total 1500 ml 600 ml 1651 ml 3751 ml Output Total 350 ml 2400 ml 2750 ml Balance 1500 ml 250 ml -749 ml 1001 ml Intake Oral 800 ml 800 ml IV Total 1500 ml 600 ml 851 ml 2951 ml Output Urine Total 350 ml 2400 ml 2750 ml # Bowel Movements 0 0 Exam Heart: RRR without murmur Lungs: CTAB Ext: No ankle edema Groin - right perineal area and scrotal border with swelling and minimal drainage. No redness. Lab and Diagnostics Result Diagram: 04/07/17 0956 04/07/17 0956 X-Rays, CTs and MRIs PROCEDURE: CT ABDOMEN AND PELVIS WITH CONTRAST ([id number]) INDICATIONS: perineal infection, soft tissue TECHNIQUE: After the administration of oral and intravenous contrast, 5 mm thick sections acquired from the diaphragms to the symphysis. 5 mm thick coronal and sagittal reformats were performed. For radiation dose reduction, the following was used : automated exposure control, adjustment of mA and/or kV according to patient size. COMPARISON: None. FINDINGS: Image quality: Excellent. ABDOMEN: Lung bases: There is minimal dependent atelectasis in that there are available. Heart size is normal. Solid organs: Liver and spleen are normal in size and enhancement. Gallbladder appears within normal limits without calcified gallstones. Biliary system is non-dilated. Pancreas enhances normally. No adrenal nodules. Kidneys are normal in size and enhancement, without hydronephrosis. Peritoneum and bowel: Stomach, small bowel, and colon loops are normal in caliber and wall thickness. No evidence of appendicitis. No free fluid or air. Nodes and vessels: No retroperitoneal or mesenteric adenopathy. Aorta and inferior vena cava are normal in caliber. Miscellaneous: No ventral hernias. PELVIS: Genitourinary: The urinary bladder is partially distended with suggestion of mild bladder wall thickening Miscellaneous: There is skin thickening and subcutaneous edema demonstrated in the perineum extending to the right hemiscrotum. There is a focal ovoid region of inflamed fat without a discrete abscess collection. No soft tissue gas. There are mildly prominent inguinal lymph nodes bilaterally, right greater than left, measuring up to 1 cm in short axis with preserved fatty caitlyn. There is a small fat containing right inguinal hernia. Bones: No suspicious bony lesions. No vertebral body compression fractures. IMPRESSION: 1. Perineal skin thickening and subcutaneous edema consistent with cellulitis with extension to the right hemiscrotum. No discrete abscess collection or soft tissue gas is identified, but developing Rodo's gangrene cannot be excluded and correlation is recommended with clinical exam. Findings discussed with Dr. Martin on 04/07/17 at 12:30 PM. 2. Slight wall thickening of the urinary bladder which could be due to nondistention or reflect a mild cystitis. Dictated by: Pascual Zacarias M.D. on 04/07/2017 at 12:17 Approved by: Pascual Zacarias M.D. on 04/07/2017 at 12:33 Assessment & Plan 46 yo male presenting with R testicular pain found to have R hemiscrotum cellulitis/abscesss taken to surgery for I and D / Exploration Perineal abscess/R scrotum cellulitis - Form Fruste Fourniers -MRSA on nasal swab -Appreciate ID recommendations of Zosyn and Vancomycin pending wound cultures - received vanc/meropenem/clinda in ER/OR -pain control: morphine IV PRN,and norco 1-2 q 4PRN -please monitor oxygen saturations if pt needing narcotic regimen - bowel regimen -zofran/reglan PRN -wound care -I/Os, daily weights Tobacco Abuse -nicotine patch Alcoholism: -stable - last drink 1 yr ago GI Prophylaxis: Not indicated VTE Prophylaxis: Other (start dvt proph with enoxaprin tomorrow) VTE Mechanical Devices: Intermittant Pneumatic CD Resuscitation Status: CPR: Attempt Resuscitation Yfn Rush MD April 08, 2017 15:27
[2017-04-08 15:53] VITALS: BP 109/78; O2SAT 98
--- NOTE | 2017-04-08 19:04 | NUR ---
Pain/Dressing change Pt pain well controlled with Vicodin dressing changed twice this shift, Wet to dry dressing. Pt anxious to smoke, reinforced teaching on smoking policy, offer nicotine patch, pt refused, received order to nicotine lozenges, pt tried one, helped with the need to smoke, pt still restless in room, frequently walking in [place].
[2017-04-08] MEDS: Senna-Docusate 8.6-50 mg Tablet PO SCH (21:00)
[2017-04-08 21:15] VITALS: BP 121/76; PULSE 97; RESP 20; O2SAT 98
[2017-04-09] MEDS: PIPERACILLIN TAZO IV SCH ×2 (01:44→10:51)
[2017-04-09] MEDS: DEXTROSE 5% IV SCH ×2 (01:44→10:51)
--- NOTE | 2017-04-09 04:47 | NUR ---
pain pt took Aztec once at HS this shift. he has slept since then appearing comfortable. This AM he denies the need for any pain medication and says that he would like to sleep for a while longer before getting up and taking medication. dressing has been checked twice and both times was c/d/i. will check again before end of shift and change if necessary. pt up independently in room. pleasant and cooperative with care.
[2017-04-09 06:05] VITALS: BP 125/80; PULSE 88; RESP 20; O2SAT 96
[2017-04-09] MEDS: 0.9% Sodium Chloride 1,000 ML IV SCH (06:51)
[2017-04-09] MEDS ORDERED: Vancomycin Serum Trough XX ONE (07:30)
--- NOTE | 2017-04-09 08:08 | PCM.PNMED ---
Subjective Date of Service April 09, 2017 Subjective Less pain and swelling. No fevers or chills. No nausea or vomiting. Less right groin pain. No chest pain or dyspnea. Exam Vital Signs Vital Sign - Last Date Time Temp Pulse Resp B/P Pulse Ox O2 Delivery O2 Flow Rate FiO2 04/09/17 06:05 36.7 88 20 125/80 96 Room Air 04/07/17 16:25 8 Intake and Output 04/08/17 04/08/17 04/09/17 Cumulative From/Thru 15:00 23:00 07:00 04/07/17 09:18 - 04/09/17 06:17 Intake Total 1000 ml 1776 ml 6527 ml Output Total 3100 ml 5850 ml Balance -2100 ml 1776 ml 677 ml Intake Oral 1000 ml 1800 ml IV Total 1776 ml 4727 ml Output Urine Total 3100 ml 5850 ml # Bowel Movements 0 Exam Right groin still tenders, swollen and indurated. Positive lymphadenopathy. Alert and oriented -3, no distress. Fluent speech Anicteric sclera. Lungs are clear with normal rate and effort Heart is regular without murmur gallop or rub Abdomen soft nontender, flat Extremities are free of edema. Skin is free of rash or lesions. IVs and Medications Medications Reviewed: Medications were reviewed in detail Lab and Diagnostics Result Diagram: 04/07/1795504/07/17955 X-Rays, CTs and MRIs PROCEDURE: CT ABDOMEN AND PELVIS WITH CONTRAST (PNL-7102) INDICATIONS: perineal infection, soft tissue TECHNIQUE: After the administration of oral and intravenous contrast, 5 mm thick sections acquired from the diaphragms to the symphysis. 5 mm thick coronal and sagittal reformats were performed. For radiation dose reduction, the following was used : automated exposure control, adjustment of mA and/or kV according to patient size. COMPARISON: None. FINDINGS: Image quality: Excellent. ABDOMEN: Lung bases: There is minimal dependent atelectasis in that there are available. Heart size is normal. Solid organs: Liver and spleen are normal in size and enhancement. Gallbladder appears within normal limits without calcified gallstones. Biliary system is non-dilated. Pancreas enhances normally. No adrenal nodules. Kidneys are normal in size and enhancement, without hydronephrosis. Peritoneum and bowel: Stomach, small bowel, and colon loops are normal in caliber and wall thickness. No evidence of appendicitis. No free fluid or air. Nodes and vessels: No retroperitoneal or mesenteric adenopathy. Aorta and inferior vena cava are normal in caliber. Miscellaneous: No ventral hernias. PELVIS: Genitourinary: The urinary bladder is partially distended with suggestion of mild bladder wall thickening Miscellaneous: There is skin thickening and subcutaneous edema demonstrated in the perineum extending to the right hemiscrotum. There is a focal ovoid region of inflamed fat without a discrete abscess collection. No soft tissue gas. There are mildly prominent inguinal lymph nodes bilaterally, right greater than left, measuring up to 1 cm in short axis with preserved fatty caitlyn. There is a small fat containing right inguinal hernia. Bones: No suspicious bony lesions. No vertebral body compression fractures. IMPRESSION: 1. Perineal skin thickening and subcutaneous edema consistent with cellulitis with extension to the right hemiscrotum. No discrete abscess collection or soft tissue gas is identified, but developing Rodo's gangrene cannot be excluded and correlation is recommended with clinical exam. Findings discussed with Dr. Martin on 04/07/17 at 12:30 PM. 2. Slight wall thickening of the urinary bladder which could be due to nondistention or reflect a mild cystitis. Dictated by: Pascual Zacarias M.D. on 04/07/2017 at 12:17 Approved by: Pascual Zacarias M.D. on 04/07/2017 at 12:33 Assessment & Plan 46 yo male presenting with R testicular pain found to have R hemiscrotum cellulitis/abscesss taken to surgery for I and D / Exploration #. Perineal abscess/R scrotum cellulitis - Improving. -MRSA on nasal swab -Continue Zosyn and Vancomycin pending wound cultures - received vanc/meropenem/ clinda in ER/OR -pain control: morphine IV PRN,and norco 1-2 q 4PRN (high risk medication). - bowel regimen -zofran/reglan PRN -wound care -I/Os, daily weights Possible discharge Monday if continues to improve. #. Tobacco dependence, POA. Stable. -nicotine patch #. Alcohol dependence, POA. Remission. -stable - last drink 1 yr ago GI Prophylaxis: Not indicated VTE Prophylaxis: Other (start dvt proph with enoxaprin tomorrow) VTE Mechanical Devices: Intermittant Pneumatic CD Resuscitation Status: CPR: Attempt Resuscitation Yovany Luong MD April 09, 2017 08:08
[2017-04-09] MEDS: Vancomycin Dose per Pharmacist XX SCH (08:30)
--- NOTE | 2017-04-09 08:33 | PCM.PNSURG ---
Subjective Visit Information: Reason for Visit Perineal Cellulitis Abscess Surgery/Surgery Date Post-Op Day # Date of Admission: April 07, 2017 at 15:11 Hospital Day # Subjective: R scrotal dressing changed yesterday, otherwise doing well, on abx Objective Objective Awake in bed Wearing his own clothes R scrotum/perineum -- packing in place, no visible erythema Wound Cx -- staph Vital Sign- Last 8 Hours Date Time Temp Pulse Resp B/P Pulse Ox O2 Delivery O2 Flow Rate FiO2 04/09/17 06:05 36.7 88 20 125/80 96 Room Air Intake and Output- Last 8 Hour 04/09/17 Cumulative From/Thru 07:00 04/07/17 09:18 - 04/09/17 06:17 Intake Total 1776 ml 6527 ml Output Total 5850 ml Balance 1776 ml 677 ml Intake Oral 1800 ml IV Total 1776 ml 4727 ml Output Urine Total 5850 ml # Bowel Movements 0 Result Diagram: 04/07/17 0956 04/07/17 0956 Assessment & Plan Impression R scrotal abscess s/p I & D Wound cx so far showing staph Problems: Plan screen maker to see tomorrow IV abx per ID and hospitalist service Will need outpt follow-up. VTE Prophylaxis: Other (start dvt proph with enoxaprin tomorrow) Resuscitation Status: CPR: Attempt Resuscitation Jordan Tadeo MD April 09, 2017 08:33
[2017-04-09] MEDS: HYDROcodone-APAP 5-325 mg Tablet PO PRN (08:49)
[2017-04-09] MEDS: Vancomycin Inj 1,250 MG in 0.9% Sodium Chloride 250 ML IV SCH (08:50)
--- NOTE | 2017-04-09 08:56 | PCM.PHAPRO ---
Progress R testicular pain Vancomycin trough of 11.8 returned below target after late administration of previous dose. Increasing dose to [id number]. Next trough on 04/11@4624 Kirill Spence Pharm.D April 09, 2017 08:56
--- NOTE | 2017-04-09 12:22 | PCM.DIMED ---
Discharge Instructions Date of Service April 09, 2017 Dates of Hospitalization April 07, 2017 at 15:11 Discharge Diagnosis Discharge Diagnosis #. Perineal abscess/R scrotum cellulitis - Improving. #. Tobacco dependence #. Alcohol dependence, Remission. Diet No restrictions Activity No restrictions Call your provider Fever or Chills, Other (INCREASED GROIN SWELLING) Patient Instructions CALL WOUND CARE CLINIC MONDAY Follow-up Provider: Sepideh Roland Follow-up with PCP in: 1 week Yovany Luong MD April 09, 2017 12:22
[2017-04-09] MEDS ORDERED: LINE600T2 PO (12:23)
[2017-04-09] MEDS ORDERED: AMOX-366 PO (12:23)
--- NOTE | 2017-04-09 12:27 | PCM.DC.MED ---
Discharge Summary Date of Service April 09, 2017 Dates of Hospitalization Date of Hospital Admission April 07, 2017 at 15:11 Date of Discharge: April 09, 2017 Providers: Admitting Physician: Rajiv Padilla DO Primary Care Physician: Nopcp Attending Physician: Rajiv Padilla DO Diagnosis at Time of Discharge Diagnosis at Time of Discharge #. Perineal abscess/R scrotum cellulitis - Improving. #. Tobacco dependence #. Alcohol dependence, Remission. Consultations ID, Brien Whitman Procedures XRay, CTs & MRIs PROCEDURE: CT ABDOMEN AND PELVIS WITH CONTRAST (PNL-7102) INDICATIONS: perineal infection, soft tissue TECHNIQUE: After the administration of oral and intravenous contrast, 5 mm thick sections acquired from the diaphragms to the symphysis. 5 mm thick coronal and sagittal reformats were performed. For radiation dose reduction, the following was used : automated exposure control, adjustment of mA and/or kV according to patient size. COMPARISON: None. FINDINGS: Image quality: Excellent. ABDOMEN: Lung bases: There is minimal dependent atelectasis in that there are available. Heart size is normal. Solid organs: Liver and spleen are normal in size and enhancement. Gallbladder appears within normal limits without calcified gallstones. Biliary system is non-dilated. Pancreas enhances normally. No adrenal nodules. Kidneys are normal in size and enhancement, without hydronephrosis. Peritoneum and bowel: Stomach, small bowel, and colon loops are normal in caliber and wall thickness. No evidence of appendicitis. No free fluid or air. Nodes and vessels: No retroperitoneal or mesenteric adenopathy. Aorta and inferior vena cava are normal in caliber. Miscellaneous: No ventral hernias. PELVIS: Genitourinary: The urinary bladder is partially distended with suggestion of mild bladder wall thickening Miscellaneous: There is skin thickening and subcutaneous edema demonstrated in the perineum extending to the right hemiscrotum. There is a focal ovoid region of inflamed fat without a discrete abscess collection. No soft tissue gas. There are mildly prominent inguinal lymph nodes bilaterally, right greater than left, measuring up to 1 cm in short axis with preserved fatty caitlyn. There is a small fat containing right inguinal hernia. Bones: No suspicious bony lesions. No vertebral body compression fractures. IMPRESSION: 1. Perineal skin thickening and subcutaneous edema consistent with cellulitis with extension to the right hemiscrotum. No discrete abscess collection or soft tissue gas is identified, but developing Rodo's gangrene cannot be excluded and correlation is recommended with clinical exam. Findings discussed with Dr. Martin on 04/07/17 at 12:30 PM. 2. Slight wall thickening of the urinary bladder which could be due to nondistention or reflect a mild cystitis. Dictated by: Pascual Zacarias M.D. on 04/07/2017 at 12:17 Approved by: Pascual Zacarias M.D. on 04/07/2017 at 12:33 Invasive Procedures I and D Right groin abscess Brief History 46 yo male with a significant hx of tobacco abuse presenting to ER with 4 days of inguinal pain that began over the weekend, worsening by monday with e/o abscess that looked like a "pimple" and evaluated at [facility] 3 d ago - with instructions for conservative tx, pain meds and antibiotics with progressive worsening over the last few days with pain to R testicle. pain was noted with walking, denies cp/sob/f/D/V - but +chills, and pain with urination. Hospital Course 46 yo male presenting with R testicular pain found to have R hemiscrotum cellulitis/abscesss taken to surgery for I and D / Exploration #. Perineal abscess/R scrotum cellulitis - Improving. -MRSA on nasal swab -Continue Zosyn and Vancomycin pending wound cultures - received vanc/meropenem/ clinda in ER/OR -pain control: morphine IV PRN,and norco 1-2 q 4PRN (high risk medication). - bowel regimen -zofran/reglan PRN -wound care -I/Os, daily weights Possible discharge Monday if continues to improve. Improved with I and D and IV antibiotics. Okay for dc after seen on Monday by Edward, #. Tobacco dependence, POA. Stable. -nicotine patch #. Alcohol dependence, POA. Remission. -stable - last drink 1 yr ago Exam Vital Signs (Last) Date Time Temp Pulse Resp B/P Pulse Ox O2 Delivery O2 Flow Rate FiO2 04/09/17 06:05 36.7 88 20 125/80 96 Room Air 04/07/17 16:25 8 Exam Patient seen and examined on the day of discharge. Test 04/07/17 09:56 04/07/17 12:35 04/09/17 07:35 White Blood Count 10.7th/mm3 (3.8-10.1) Red Blood Count 4.90mil/mm3 (4.40-5.80) Hemoglobin 15.2g/dL (13.8-17.2) Hematocrit 43.3% (41.0-50.0) Mean Corpuscular Volume 88.4fL (81-100) Mean Corpuscular Hemoglobin 31.0pg (27.0-35.0) Mean Corpuscular Hemoglobin Concent 35.1% (32.0-37.0) Red Cell Distribution Width 14.1% (12.3-15.4) Platelet Count 170bil/L (150-400) Neutrophils (%) (Auto) 74.6% (40-74) Lymphocytes (%) (Auto) 17.4% (14-46) Monocytes (%) (Auto) 6.6% (4-12) Eosinophils (%) (Auto) 0.7% (0-5) Basophils (%) (Auto) 0.5% (0-3) Sodium Level 132mEq/L (134-144) Potassium Level 4.3mEq/L (3.5-5.2) Chloride Level 94mEq/L (97-108) Carbon Dioxide Level 22mmol/L (18-29) Blood Urea Nitrogen 12mg/dL (6-24) Creatinine 1.06mg/dL (0.76-1.27) Estimat Glomerular Filtration Rate 79mL/min (>59) Glucose Level 121mg/dL (60-99) Hemoglobin A1c 5.8% (4.8-5.6) Lactic Acid Level 0.8mmol/L (0.4-2.0) Calcium Level 9.0mg/dL (8.5-10.1) Total Bilirubin 0.7mg/dL (0.0-1.2) Aspartate Amino Transf (AST/SGOT) 17U/L (0-50) Alanine Aminotransferase (ALT/SGPT) 13U/L (0-44) Alkaline Phosphatase 104U/L (25-150) C-Reactive Protein 27.7mg/dL (0.0-0.5) Total Protein 7.5g/dL (6.4-8.4) Albumin 3.8g/dL (3.4-5.0) Procalcitonin 0.13ng/mL (0.00-0.08) Urine Color Yellow (YELLOW) Urine Appearance Clear (CLEAR,HAZY) Urine pH 6.5 (5.0-8.0) Urine Specific [place] 1.015 (1.003-1.035) Urine Protein Negativemg/dL (NEG,TRACE) Urine Glucose (UA) Negativemg/dL (NEGATIVE) Urine Ketones Negativemg/dL (NEGATIVE) Urine Occult Blood Negative (NEGATIVE) Urine Nitrite Negative (NEGATIVE) Urine Bilirubin Negative (NEGATIVE) Urine Urobilinogen Normalmg/dL (NORMAL) Urine Leukocyte Esterase Negative (NEGATIVE) Urine RBC 0-2/hpf (0-2) Urine WBC 0-5/hpf (0-5) Urine Epithelial Cells Occasional/hpf (NONE-MOD) Urine Crystals None seen (NONE SEEN) Urine Bacteria None/hpf (NONE-FEW) Urine Hyaline Casts None/lpf (NONE) Urine Granular Casts None seen (NONE SEEN) Urine Waxy Casts None seen (NONE SEEN) Urine Red Blood Cell Casts None seen (NONE SEEN) Urine White Blood Cell Casts None seen (NONE SEEN) Urine Mucus None seen (None Seen) Urine Trichomonas None seen (NONE SEEN) Urine Yeast None (NONE SEEN) Urinalysis Comment None Urine Culture Reflexed Not indicated Pro-B-Type Natriuretic Peptide 370.9pg/mL (0-121) Vancomycin Level Trough 11.8mcg/mL Discharge Medications Discharge Medications Amoxicillin/Clav K 875-125 mg (Augmentin 875-125 mg) 1 Each Tablet 1 TABLET PO BID Prescribed by: YOVANY CROW MD Linezolid (Zyvox) 600 Mg Tablet 600 MG PO BID Prescribed by: YOVANY CROW MD Followup Plan Disposition: Home Discharge Diet: No restrictions Discharge Activity: No restrictions Patient Instructions CALL WOUND CARE CLINIC MONDAY Follow-up Provider: Sepideh Roland Follow-up with PCP in: 1 week Time spent 40 min Yovany Crow MD April 09, 2017 12:27
--- NOTE | 2017-04-09 12:28 | NUR ---
Social Work Note: Discharge Data& Assessment: Per pt is medically improved and ready to discharge home via POV. Abel Woodall is a 46 year old male admitted on 04/07/2017 for perineal cellulitis abscess. Per pt is medically improved and ready to discharge home with outpt wound care center follow up. Per RNKENIA to schedule appointment tomorrow, Monday when the center is open, pt has contact info to arrange outpt follow up himself as well. Pt is ambulating the halls independently. SW met with pt at bedside to assess for any unmet needs and confirm the discharge plan. Pt denies any other needs and plans to drive himself home today. MD aware. No other discharge needs identified. Plan: Per pt is medically improved and ready to discharge home via POV with outpt wound care center follow up. Pt denies any other needs. MD aware. No other discharge needs identified. MICHAEL Dominguez
[2017-04-09] MEDS ORDERED: HYDR-4003 PO (13:02)
--- NOTE | 2017-04-09 13:57 | PROG NOTE ---
[address] [address] PROGRESS NOTE PATIENT: SHADE CALLOWAY : 1970 MR#: [id number] ADMIT: 04/07/2017 JOB ID: [id number] DATE: 04/09/2017 REASON FOR FOLLOWUP: Staph aureus right scrotal infection. INTERVAL HISTORY: Recall that this is a 46-year-old gentleman who was admitted because of concerns about possible early Rodo-type gangrene. He was taken to the operating room and an incision was made along the right side of his scrotum on April 07. At that time, the diagnosis was perianal abscess and right inguinal cellulitis. It was noted that an 8 cm incision was made and a small abscess was found in the right scrotal area. The patient reports that over his 2-1/2 days here in the hospital, he is dramatically better and at this point, he is extremely anxious about being discharged as soon as possible, preferably today. 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 No fevers, no chills. No sweats. No cough, chest pain, nausea, vomiting, diarrhea. PHYSICAL EXAMINATION: Reveals an afebrile gentleman who has been afebrile since admission. He is in no distress. Pulse 88, respiratory rate 20, blood pressure 125/80. He is saturating well on room air. He is awake, alert, anxious. Oral cavity negative. Lungs clear. Cardiac tones without murmur. Abdomen benign. The right scrotum has about a 7 cm long incision which extends basically from the base of the scrotum all the way up along the right lateral side. This wound is packed, but I removed the packing and it looks quite clean at the base. LABORATORIES: Include white count 10,000 when he came in. It has not been repeated in the last couple days. CRP was very high 28, but procalcitonin 0.13. Urinalysis without white cells. Micro studies include two negative blood cultures. A nasal MRSA screen is positive and a culture that Dr. Luong obtained during the I and D procedure is growing heavy growth of one organism which is Staph aureus. We will not known until tomorrow if this is MRSA like the Staph in the nose. IMPRESSION: It would appear this patient has a monomicrobial right scrotal cellulitis with a small abscess that was drained surgically two days ago. This is likely all due to Methicillin-resistant Staphylococcus aureus and we are seeing more and more of these perineal/genital methicillin-resistant Staphylococcus aureus infections over the past decade or so since the emergence of methicillin-resistant Staphylococcus aureus as a community pathogen. I think, at this point, the patient could be managed with oral Zyvox on about a 10-day course starting today. Zyvox is very well orally absorbed and should be a potent agent against virtually all isolates of Staph aureus. Ideally, the patient would wait until tomorrow until we have back susceptibilities on the groin organism, but I do not think it would be a big jump for him to go home today with close followup in the [facility] Care [facility]. RECOMMENDATIONS: 1. Will discontinue the vancomycin and switch to oral Zyvox 600 b.i.d. with the plan to go for 10 days. 2. If the patient leaves today before his final cultures are done of the groin site, I would also send him with Augmentin 875 p.o. b.i.d. for 10 days which would provide coverage for anaerobes and any other organisms which we have not yet identified in the not yet finalized cultures. 3. The patient will need followup with wound management. 4. Thank you very much.
--- NOTE | 2017-04-09 14:53 | NUR ---
Discharge Pt left via private vehicle in stable condition with all belongings at 1430, no narcotics given since 0830 this am, IV d/c'd, prescriptions given, teaching on wound care done with pt, pt verbalized how to do dressing change. instructions for follow up appointments given. pt will call Monday morning to set them up.
[2017-04-09] MEDS ORDERED: Vancomycin Inj 1,500 MG in 0.9% Sodium Chloride 500 ML IV SCH (20:30)
[2017-04-11] MEDS ORDERED: Vancomycin Serum Trough XX ONE (07:30)
== END 2017-04-09 14:28 | disposition home or self-care (01) | DRG 383 ==
LOC: SED 09:08 → OSC 14:45 → ORA 14:55 → OSC 15:11
PROVIDERS: ADMIT Internal Medicine; ATTEND Internal Medicine
PROC: 0H99XZX Drainage of Perineum Skin, External Approach, Diagnostic (ICD-10-PCS; principal; 2017-04-07 17:00)
DX: L02.215 Cutaneous abscess of perineum (principal); B95.62 Methicillin resistant Staphylococcus aureus infection as the cause of diseases classified elsewhere; F10.21 Alcohol dependence, in remission; N49.2 Inflammatory disorders of scrotum; F17.210 Nicotine dependence, cigarettes, uncomplicated

== ENCOUNTER 2017-05-17 06:40 | Emergency (ER) | payer OTHER ==
[~2017-05-17] VITALS: Ht 180.3 cm; Wt 84.1 kg
[~2017-05-17 06:40] MED LIST: AMOX-366 PO; HYDR-4003 PO; LINE600T2 PO
[2017-05-17 06:43] VITALS: BP 115/76; PULSE 96; RESP 16; O2SAT 96
--- NOTE | 2017-05-17 07:03 | ED.REPORT ---
HPI-Rash / Abscess Date of Service May 17, 2017 ED Provider: Allen Maldonado MD The patient is a 47 year old male with history of MRSA, who presents to the emergency department complaining of multiple sore areas located diffusely to his body. The patient believes he got multiple bug bites while sleeping in a trailer bed 2 weeks ago. The bumps initially were getting better and were only located to his legs bilaterally. Over the last few days the bumps have spread to his neck, chest, and armpit. Some of the sores have increased in size and appear to be infected. He denies fever, chills, nausea or vomiting. He admits that he has been scratching at the bumps and thinks they become infected. Nursing Notes Stated Complaint: BUG BITES Chief Complaint: Skin Rash/Abscess Nursing Notes Reviewed: Yes Allergies: Coded Allergies: No Known Allergies (Unverified , 04/07/17) Scheduled Amoxicillin/Clav K 875-125 mg (Augmentin 875-125 mg) 1 Each Tablet 1 TABLET PO BID Doxycycline Monohyd (Doxycycline Monohyd) 100 Mg Tablet 100 MG PO BID Linezolid (Zyvox) 600 Mg Tablet 600 MG PO BID Mupirocin (Mupirocin Ointment) 22 Gm Oint...g. 1 APPLIC TOP TID Scheduled PRN Hydrocodone-Acetaminophen 5-325 mg (Hydrocodone-Acetaminophen 5-325 mg) 1 Each Tablet 1 TABLET PO Q4H PRN PRN For Pain General Time Seen by MD: 07:02 Chief Complaint Mult tender/swollen areas Hx Obtained From: Patient Arrived By: Walk-in Onset Occurred: More than a week ago... 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 Physical Exam Initial Vital Signs Vital Signs (First) Date Time Temp Pulse Resp B/P Pulse Ox O2 Delivery O2 Flow Rate FiO2 05/17/17 06:43 36.8 96 16 115/76 96 Room Air Initial VS: Reviewed Head / Eyes: Atraumatic, Normocephalic, PERRL ENT: Mucous membranes moist, Conjunctiva normal, No scleral icterus Neck: Supple, Non-tender, Full range of motion Respiratory: Breath sounds normal, Clear to auscultation, No respiratory distress Cardiovascular: Regular rate & rhythm, Heart sounds normal, Intact distal pulses Abdomen / GI: Soft, Non-tender, No guarding, No rebound, No distention Extremities: Vascular intact, Neuro intact, No swelling, No tenderness Neurologic: Alert, Oriented, Nonfocal Psychiatric: Mood/affect normal, Behavior normal, Normal thought content General/Constitutional: Awake, Alert, Cooperative Skin: Warm, Dry Rash / Lesion Notes: There are scattered erythematous papules about his groin folds, lower extremities, 1 to the left side of his neck, and 1 to his left cheek. They are erythematous, tender, and slightly pustular in appearance. The papules are measuring anywhere from 3 mm to 2 cm. There are no abscesses amenable to incision and drainage. No cellulitis. Re-Eval/Medical Decision Med Decision/Clinical Course The patient is a 47 year old male with history of MRSA, who presents to the emergency department complaining of multiple sore areas located diffusely to his body. The patient believes he got multiple bug bites while sleeping in a trailer bed 2 weeks ago. The bumps initially were getting better and were only located to his legs bilaterally. Over the last few days the bumps have spread to his neck, chest, and armpit. Some of the sores have increased in size and appear to be infected. He denies fever, chills, nausea or vomiting. He admits that he has been scratching at the bumps and thinks they became infected. Here in the emergency department the patient is afebrile with stable vital signs and examination as above. Examination reveals diffuse erythematous pupils about his lower extremities, inner thigh region, neck and face. These are consistent with pustules. None of these have significant surrounding cellulitic component. There are no regions of abscess amenable to incision and drainage. I suspect the patient may initially have had some superficial bug bites which he aggressively scratched causing skin injuries and production of MRSA resulting in his now present pustular rash. I have prescribed doxycycline as well as mupirocin ointment. I have advised the patient to apply warm compresses. He will additionally tried bleach about this for MRSA eradication. Given his history of significant groin infection requiring surgical I&D I have advised him to return to the emergency room immediately should he develop worsening pustular rash, worsening swelling, fevers or any other concerning signs or symptoms. Prior to discharge follow-up and return precautions were reviewed in detail with the patient who verbalized understanding and agreement with the plan. The patient was discharged in stable condition. Source of Hx: Old records Re-Evaluation/Progress : Time of Eval: 07:52 Re-Evaluation/Progress Note: Discussed plan for discharge. All questions were addressed. Counseled Regarding: Diagnosis, Need for follow-up, When/why to return to ED Discharge & Departure Impression: Primary Impression: Pustules determined by examination Additional Impression: History of MRSA infection Disposition: Home Discharge Condition All VS Reviewed: Yes Condition: Stable Patient Instructions: MRSA (Methicillin-Resistant Staphylococcus Aureus) (ED) Additional Instructions: Thank you for entrusting us with your care today. None of the sores need to be incised and drained at this time. Use the oral antibiotic doxycycline as prescribed. Apply the mupirocin ointment as prescribed. You may also consider taking beach bath that can help eradicate the MRSA on your skin. Mix 1/4 cup bleach in your bath and soak in it. Return to the emergency department for any new or concerning symptoms. Referrals: Sepideh Roland (PCP) [place]rib[place] Attestation Portions of this note were transcribed by Shruti Roman. I, Dr. Maldonado personally performed the history, physical exam and medical decision-making; I reviewed and confirmed the accuracy of the information in the transcribed note. Signed by: Janie Ferreira, 05/17/2017 at 0830. copies to: Sepideh Roland Beck O MD May 17, 2017 07:03 Shruti Roman May 17, 2017 07:46
[2017-05-17] MEDS ORDERED: MUPI22OI2 TOP (07:56)
[2017-05-17] MEDS ORDERED: DOXY-232 PO (07:56)
[2017-05-17 08:02] VITALS: PULSE 98; O2SAT 97
== END 2017-05-17 08:00 | disposition home or self-care (01) ==
LOC: SED 06:40
DX: L08.9 Local infection of the skin and subcutaneous tissue, unspecified (principal); Z86.14 Personal history of Methicillin resistant Staphylococcus aureus infection; F17.200 Nicotine dependence, unspecified, uncomplicated

== ENCOUNTER 2017-06-25 08:41 | Emergency (ER) | payer OTHER ==
[~2017-06-25] VITALS: Ht 182.2 cm; Wt 86.4 kg
[~2017-06-25 08:41] MED LIST changes: +DOXY-232 PO; +MUPI22OI2 TOP
[2017-06-25 08:53] VITALS: BP 137/95; PULSE 84; RESP 16; O2SAT 96
--- NOTE | 2017-06-25 09:16 | ED.REPORT ---
HPI-Back Pain 40 and Over Date of Service Jun 25, 2017 ED Provider: Mirza Jacques MD Patient is a 47 year old male with a history of MRSA and abscess who presents to the ED complaining of lower back pain onset 5 days ago. He reports that there is mild relief when laying down and the pain is exacerbated by movement. Patient states that he does a lot of heavy lifting but is unsure if he had any injury. He denies dysuria, hematuria, weakness, numbness, incontinence or fever. Patient also complains of multiple sore spots that he is concerned might be MRSA again. Nursing Notes Stated Complaint: BACK PAIN/INFECTION Chief Complaint: Back Pain or Injury Nursing Notes Reviewed: Yes Allergies: Coded Allergies: No Known Allergies (Unverified , 04/07/17) Scheduled Amoxicillin/Clav K 875-125 mg (Augmentin 875-125 mg) 1 Each Tablet 1 TABLET PO BID Doxycycline Monohyd (Doxycycline Monohyd) 100 Mg Tablet 100 MG PO BID Linezolid (Zyvox) 600 Mg Tablet 600 MG PO BID Mupirocin (Mupirocin Ointment) 22 Gm Oint...g. 1 APPLIC TOP TID Sulfamethoxazole/Trimeth 800-160 mg (Bactrim DS) 1 Each Tablet 1 TABLET PO BID Scheduled PRN Cyclobenzaprine (Cyclobenzaprine) 5 Mg Tablet 5 MG PO HS PRN PRN Spasm Hydrocodone-Acetaminophen 5-325 mg (Hydrocodone-Acetaminophen 5-325 mg) 1 Each Tablet 1 TABLET PO Q4H PRN PRN For Pain Ibuprofen (Ibuprofen) 800 Mg Tablet 800 MG PO TID PRN PRN For Pain General Time Seen by MD: 09:07 Chief Complaint Lumbar pain Hx Obtained From: Patient Arrived By: Walk-in Sudden in Onset?: Yes Onset Occurred: 5 days ago Symptom Duration: Since onset Caused by: Spontaneous/no mechanism Location: : Spinal lumbar area Quality: Painful Radiation: : Does not radiate Severity: Current: Moderate Recent Healthcare: Recent doctor visit, Recent hospitalization Past Medical History Past Medical History The patient was born with aortic stenosis (didn't need any surgery) Hx of MRSA Past Surgical History none reported Family History Noncontributory Smoking History Current Every Day Smoker Social History Alcohol Use: In recovery Drug Use: Denies drug use Other Social History: Local resident Ambulatory Status Independent Review of Systems Constitutional: Denies: Chills, Fever Male: Denies Dysuria, Denies Hematuria, Denies Incontinence Musculoskeletal: Reports: Back pain Neurologic: Denies: Bladder dysfunction, Bowel dysfunction, Numbness, Problem walking, Weakness Complete sys rev & neg: except as marked. Skin: Reports Rash, Denies Itching Physical Exam Initial Vital Signs Vital Signs (First) Date Time Temp Pulse Resp B/P Pulse Ox O2 Delivery O2 Flow Rate FiO2 06/25/17 08:53 84 16 137/95 96 Room Air Initial VS: Reviewed General/Constitutional: Awake, Alert Respiratory / Chest: Atraumatic, Breath sounds NL, Breath sounds = bilat, No respiratory distress Cardiovascular: Heart rate NL, Regular rhythm, Heart sounds NL, No murmurs Abdomen: Atraumatic, Soft 2cm area of erythema to the right lower abdomen no fluctuance or discharge BACK: diffuse low back tenderness Neurologic: Oriented X3, Speech NL, No motor deficits, No sensory deficits Lower Extremity / Pelvis / MS: Atraumatic, Inspection NL, Full range of motion Skin: Atraumatic, Color NL, No rash, Warm, Dry Head / Eyes: Atraumatic, Normocephalic, PERRL, EOMI Psychiatric: Affect NL, Mood NL Interpretation & Diagnostics Lab Results Interpretation Test 06/25/17 10:33 Hold Urine Received (Received) Re-Eval/Medical Decision Med Decision/Clinical Course 47-year-old male presenting with low back pain 5 days. He denies any trauma. He does repeated heavy lifting. No urinary symptoms. No red flag symptoms. Diffuse low back tenderness. Patient was given Toradol with improvement in low back pain. He also has a abdominal wall cellulitis with no abscess or fluctuance or discharge. Patient will be treated with NSAIDs for his pain and Bactrim for his cellulitis. Return precautions given. I advised him to follow up with his primary doctor or pain persists as he may warrant some imaging though I do not see any indication for emergent imaging at this time. Re-Evaluation/Progress : Time of Eval: 09:53 Re-Evaluation/Progress Note: Discussed results and plan for discharge. Patient understands and agrees to plan. All questions were addressed. Counseled Regarding: Diagnosis, Lab results, Need for follow-up, When/why to return to ED Discharge & Departure Impression: Primary Impression: Low back pain Chronicity: acute Back pain laterality: midline Sciatica presence: without sciatica Qualified Code: M54.5 - Low back pain Additional Impression: Cellulitis Site of cellulitis: other site Qualified Code: L03.818 - Cellulitis of other sites Disposition: Home Discharge Condition All VS Reviewed: Yes Condition: Stable Patient Instructions: Cellulitis (ED), Musculoskeletal Pain (ED) Additional Instructions: Your labs were normal and reassuring. There was no evidence of an UTI. At this time, there was no evidence for further imaging. You can take ibuprofen as needed for pain. You can also take the muscle relaxant to help you sleep. Do not drink alcohol or drive while taking it, as it can make you feel drowsy. You can also try using heat and ice, rotating 30 minutes, 3x a day. Take the antibiotic Bactrim for the cellulitis. Try to not do any heavy lifting over the next week. Follow up with your primary care physician later this week if your symptoms persist. Return to the emergency department if you develop any new or concerning symptoms including incontinence, weakness in your legs or bowel dysfunction. Referrals: Sepideh Roland (PCP) Janie Attestation Portions of this note were transcribed by Bee Pruett. I, Dr. Jacques personally performed the history, physical exam and medical decision-making; I reviewed and confirmed the accuracy of the information in the transcribed note. Signed by: Janie Pitts, 06/25/17 copies to: Sepideh Roland Ben M MD Jun 25, 2017 09:16 Negrita Pruett Jun 25, 2017 09:27
[2017-06-25] MEDS ORDERED: SULF1TAB7 PO (09:38)
[2017-06-25] MEDS ORDERED: IBUP800T28 PO (09:40)
[2017-06-25] MEDS ORDERED: CYCL5TAB PO (09:40)
[2017-06-25 09:58] VITALS: BP 137/95; PULSE 84; RESP 16; O2SAT 96
== END 2017-06-25 09:58 | disposition home or self-care (01) ==
LOC: SED 08:41
DX: M54.5 Low back pain (principal); L03.311 Cellulitis of abdominal wall; X50.0XXA Overexertion from strenuous movement or load, initial encounter; Y92.9 Unspecified place or not applicable; Y93.89 Activity, other specified; Y99.8 Other external cause status; F17.200 Nicotine dependence, unspecified, uncomplicated; Z86.14 Personal history of Methicillin resistant Staphylococcus aureus infection; Z87.2 Personal history of diseases of the skin and subcutaneous tissue
CPT/HCPCS: 96372; 99283; J1885

== ENCOUNTER 2017-08-06 16:57 | Emergency (ER) | payer OTHER ==
[~2017-08-06] VITALS: Ht 182.2 cm; Wt 88.6 kg
[~2017-08-06 16:57] MED LIST changes: +CYCL5TAB PO; +IBUP800T28 PO; +SULF1TAB7 PO
[2017-08-06 17:25] VITALS: BP 142/89; PULSE 85; RESP 16; O2SAT 96
--- NOTE | 2017-08-06 18:47 | ED.REPORT ---
HPI-Extremity Problem Lower Date of Service Aug 06, 2017 ED Provider: Jewel Steele MD Patient is a 47 year old male with a history of MRSA and abscesses who presents to the ED complaining of right knee pain. Associated symptoms include swelling and redness. He denies fever or chills. The patient reports pain with movement and difficulty walking secondary to pain. Patient states that he kneels a lot at work but normally tries to use knee pads. He reports that he thinks there might be a rock in there. Reports he used a utility knife to dig something out of the knee about 3 days ago. History of recurrent staph infections/ cutaneous abscesses. Nursing Notes Stated Complaint: SWOLLEN KNEE Chief Complaint: Extremity Trauma Nursing Notes Reviewed: Yes Allergies: Coded Allergies: No Known Allergies (Unverified , 08/06/17) Scheduled Amoxicillin/Clav K 875-125 mg (Augmentin 875-125 mg) 1 Each Tablet 1 TABLET PO BID Doxycycline Monohyd (Doxycycline Monohyd) 100 Mg Tablet 100 MG PO BID Linezolid (Zyvox) 600 Mg Tablet 600 MG PO BID Mupirocin (Mupirocin Ointment) 22 Gm Oint...g. 1 APPLIC TOP TID Sulfamethoxazole/Trimeth 800-160 mg (Bactrim DS) 1 Each Tablet 1 TABLET PO BID Scheduled PRN Cyclobenzaprine (Cyclobenzaprine) 5 Mg Tablet 5 MG PO HS PRN PRN Spasm Hydrocodone-Acetaminophen 5-325 mg (Hydrocodone-Acetaminophen 5-325 mg) 1 Each Tablet 1 TABLET PO Q4H PRN PRN For Pain Ibuprofen (Ibuprofen) 800 Mg Tablet 800 MG PO TID PRN PRN For Pain General Time Seen by MD: 18:46 Chief Complaint Knee injury right Hx Obtained From: Patient Arrived By: Walk-in Onset Occurred: More than a week ago... 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 Physical Exam Initial Vital Signs Vital Signs (First) Date Time Temp Pulse Resp B/P Pulse Ox O2 Delivery O2 Flow Rate FiO2 08/06/17 17:25 36.8 85 16 142/89 96 Room Air Initial VS: Reviewed KNEE: no joint effusion warmth and erythema about the right pre patellar area tenderness about the right knee small puncture type wound over anterior patella No FB visible or palpable Ankle / Foot: Atraumatic, Neurologic intact, Vascular intact General/Constitutional: Awake, Alert Skin: No rash, Warm, Dry Neurologic: Oriented X3, Speech NL Head / Eyes: Atraumatic, Normocephalic Psychiatric: Affect NL, Mood NL Interpretation & Diagnostics X-Ray Interpretation Xray Interpretation: IMPRESSION: No acute fracture. No osseous lesion. If clinical suspicion and/or symptoms persist, further assessment with repeat plainfilms, or advanced imaging (e.g., CT, MRI, or bone scan) may be helpful for further assessment. Dictated by: Scott Blackmon M.D. on 08/06/2017 at 19:53 Approved by: Scott Blackmon M.D. on 08/06/2017 at 19:53 X-Ray Ordered: Knee right Interpretation / Wet Read by: Interpret - Radiologist Procedures Arthrocentesis negative aspiration Time: 20:15 Aspiration Performed by: ED physician Consent / Setup / Site Prep: Consent from patient, Time-out performed, Hand hygiene observed, Stand sterile technique Indication: Evacuate effusion Skin Preparation Agent: Shurclens Local Anesthesia: Lidocaine 1% Joint Aspirated: Knee right Aspiration Needle: 22g Post-Procedure / Complications: Antibiotic oint applied, Dressing placed, No complications, Condition improved, Tolerated procedure well, Patient stable Re-Eval/Medical Decision Re-Evaluation/Progress #1: Time of Eval: 20:11 Re-Evaluation/Progress Note: Discussed plan for aspiration. Patient understands and agrees to procedure Re-Evaluation/Progress #2: Time of Eval: 20:21 Re-Evaluation/Progress Note: Discussed plan for antibiotics and discharge. Patient understands and agrees to plan. All questions were addressed. Counseled Regarding: Diagnosis, Lab results, Need for follow-up, When/why to return to ED Discharge & Departure Impression: Primary Impression: Cellulitis Site of cellulitis: extremity Site of cellulitis of extremity: lower extremity Laterality: right Qualified Code: L03.115 - Cellulitis of right lower limb Disposition: Home Discharge Condition All VS Reviewed: Yes Condition: Stable Patient Instructions: Cellulitis (ED) Additional Instructions: Emergency department evaluation today included interview, examination, x-ray of right knee and attempt at aspiration of right prepatellar bursa. The aspiration was negative for fluid, indicating that a bursitis is unlikely. This appears to be a soft tissue infection of the tissue in front of the knee ( cellulitis). Do not kneel until this has cleared up. Take cephalexin and trimethoprim sulfa as prescribed until gone. Use hydrocodone/APAP one to 2 every 4 hours as needed for pain, may also use ibuprofen 600 mg 3-4 times a day. Return to emergency department for increasing redness swelling at the knee or fevers. Call tomorrow to make an appointment to see her primary care physician in approximately 5 days. Referrals: Sepideh Roland (PCP) Janie Attestation Portions of this note were transcribed by Bee Pruett. I, Dr. Steele personally performed the history, physical exam and medical decision-making; I reviewed and confirmed the accuracy of the information in the transcribed note. Signed by: Janie Pitts, 08/06/17 copies to: Sepideh Roland Donald L MD Aug 06, 2017 18:47 Negrita Pruett Aug 06, 2017 18:48
--- NOTE | 2017-08-06 19:54 | DRSVH ---
PROCEDURE: X-RAY RIGHT KNEE, THREE VIEWS ([id number]) INDICATIONS: right knee pain and swelling, no trauma TECHNIQUE: 3 views of the knee were acquired. COMPARISON: None. FINDINGS: Bones: No fractures or dislocations. No suspicious bony lesions. Soft tissues: No joint effusion. No suspicious soft tissue calcifications. IMPRESSION: No acute fracture. No osseous lesion. If clinical suspicion and/or symptoms persist, fur ther assessment with repeat plainfilms, or advanced imaging (e.g., CT, MRI, or bone scan) may be help ful for further assessment. Dictated by: Scott Blackmon M.D. on 08/06/2017 at 19:53 Approved by: Scott Blackmon M.D. on 08/06/2017 at 19:53
[2017-08-06] MEDS ORDERED: _HYDROcodone/APAP 5-325 mg Tablet PO PRN (20:25)
[2017-08-06] MEDS ORDERED: _Trimethoprim-Sulfa 160/800 mg Tablet PO SCH (20:30)
[2017-08-06 21:06] VITALS: BP 145/85; PULSE 68; RESP 18; O2SAT 98
[2017-08-06] MEDS ORDERED: _Cephalexin 500 mg Capsule PO SCH (21:30)
== END 2017-08-06 21:07 | disposition home or self-care (01) ==
LOC: SED 16:57
DX: L03.115 Cellulitis of right lower limb (principal); F17.200 Nicotine dependence, unspecified, uncomplicated; Z86.14 Personal history of Methicillin resistant Staphylococcus aureus infection